=== PATIENT | female | born 1990 | race African-American/Black ===

== ENCOUNTER 2016-09-04 14:26 | Inpatient (IN) | payer MEDICAID ==
[~2016-09-04] VITALS: Ht 157.5 cm; Wt 54.4 kg
[~2016-09-04 14:26] MED LIST: IBUPROFEN600 MG ORAL; IBUPROFEN600 MG PO; KEFLEX500 MG ORAL; NKM; NORCO 5-325 TA1 EACH ORAL; PROMETHAZINE-C118 M1 ORAL; PROMETHAZINE-D118 ML ORAL; VICODIN 5-3001 EACH ORAL; VICODIN 5-5001 EACH PO
[2016-09-04] MEDS ORDERED: Metoclopramide 10mg/2ml Inj IVP ONE (15:00)
--- NOTE | 2016-09-04 15:56 | Emergency Room Report ---
History of Present Illness General Chief Complaint: Nausea, Vomiting, and Diarrhea Source: Patient, Medical Record Present Illness HPI 25 YO F presents with generalized abd pain, multiple episodes of bilious vomiting and diarrhea since "eating friend's mother's tacos" last night. Denies fever/chills, urinary complaints, flank pain. Previous abd/pelvic surgery was . No other sick contacts. Allergies: Coded Allergies: No Known Allergies (Unverified , 08/08/12) Patient History Past Medical History: none Past Surgical History: Pertinent Family History: none Social History: Denies: alcohol use, drug use, smoking Last Menstrual Period: 08/04/2016 Now: No : 4 Para: 2 Immunizations: UTD Reviewed Nursing Documentation: PMH: Agreed, PSxH: Agreed Review of Systems All Other Systems: negative except mentioned in HPI Physical Exam Vital Signs Date Time Temp Pulse Resp B/P Pulse Ox O2 Delivery O2 Flow Rate FiO2 09/04/16 14:32 97.9 74 16 160/96 100 Room Air Sp02 EP Interpretation: reviewed, normal General Appearance: normal inspection, well appearing, no apparent distress, alert, mild distress, other - intermittent vomiting Head: normocephalic, atraumatic Eyes: bilateral eye EOMI, bilateral eye PERRL ENT: normal ENT inspection, hearing grossly normal, normal voice Neck: normal inspection, full range of motion, supple, no bony tend Respiratory: normal inspection, lungs clear, normal breath sounds, no respiratory distress, no retraction, no wheezing Cardiovascular #1: regular rate, rhythm, no edema Gastrointestinal: normal inspection, normal bowel sounds, non tender, soft, no guarding, no hernia Genitourinary: no CVA tenderness Musculoskeletal: normal inspection, back normal, normal range of motion, Avelino' s Sign negative Neurologic: normal inspection, alert, oriented x3, responsive, mover helper III-XII nml as tested, motor strength/tone normal, speech normal Psychiatric: normal inspection, judgement/insight normal, mood/affect normal Skin: normal inspection, normal color, no rash Medical Decision Making Diagnostic Impression: Primary Impression: Nausea, vomiting, and diarrhea Additional Impressions: Leukocytosis Qualified Codes: D72.829 - Elevated white blood cell count, unspecified Abdominal pain in female JOLIE (acute kidney injury) Dehydration Marijuana use, continuous ER Course 25 YO F with multiple episodes of n.v.d. Afebrile. VS notable for hypertension likely d/t vomiting. Abd sono in 2014 shows cholelithiasis. PLAN Labs, IVF hydration, anti emetic, CTAP to r/o jamie given history of gall stones , appy, colitis Reevaluation Time: 19:14 Last Vital Signs Date Time Temp Pulse Resp B/P Pulse Ox O2 Delivery O2 Flow Rate FiO2 09/04/16 14:32 97.9 74 16 160/96 100 Room Air Status: improved Reevaluation Impression Labs: Leuks 24K. Not . No UTI. Mild JOLIE. No significant metabolic abnormality CTAP: ?intusseception but no assoc SBO. No visualization of appx but no inflammation seen in area. No obvious acute jamie. Dr Vega from [facility] consulted, saw patient bedside. Empiric IV Abx Zosyn given Patient stopped vomiting only after IV ativan was given when IV zofran and Reglan were ineffective. Abd ultrasound to evaluate for acute jamie was also negative. No mass in adnexa was seen Per tech, what was seen on 2014 sono and thought to be a gallstone was more likely tip of duodenum or gas from duodenum, unlikely a gall stone. Endorsed to Dr Jimenez at 716pm Sono tech requesting AM pelvic sono to allow for proper prep, full bladder; I communicated this to Dr Jimenez. Utox positive for MJ use At this time, 8pm, possible diagnoses include cyclic vomiting from marijuana abuse, although leuks are very high. Unlikely jamie or appy. Empiric IV Abx were given along with anti emetic, IVF hydration for JOLIE. Disposition: ADMITTED INPATIENT Condition: Critical Referrals: АЛЕКСАНДР TEE,REFERRING (PCP) RONAK DYSON M.D. Sep 04, 2016 15:56
[2016-09-04 15:58] LABS: ALANINE AMINOTRANSFERASE 25 U/L (3-33); ALBUMIN/GLOBULIN RATIO 1.5 (1.0-2.7); ASPARTATE AMINO TRANSFERASE 22 U/L (5-40); CALCIUM 9.9 mg/dL (8.6-10.2); CARBON DIOXIDE 24 mEQ/L (20-30); CHLORIDE 98 mEQ/L (98-107); GLOMERULAR FILTRATION RATE > 60 mL/min (>60); HEMOLYSIS 9; LIPASE 24 U/L (< 60); POTASSIUM 3.8 mEQ/L (3.4-4.9); SODIUM 139 mEQ/L (135-145)
[2016-09-04 16:51] LABS: APPEARANCE,URINE CLEAR; KETONES,URINE 3+ (NEGATIVE); LEUKOCYTE ESTERASE ,URINE 2+ (NEGATIVE); NITRITE,URINE NEGATIVE (NEGATIVE); PH,URINE 7 (4.5-8.0); PROTEIN,URINE 2+ (NEGATIVE); UROBILINOGEN,URINE NORMAL MG/DL (0.0-1.0)
[2016-09-04 17:00] LABS: BACTERIA,URINE MODERATE /HPF; SQUAMOUS EPITHELIAL CELL,UR FEW /LPF (NONE/OCC)
[2016-09-04] MEDS ORDERED: LORazepam Inj 2mg/ml 1ml IV ONE (17:30)
[2016-09-04] MEDS ORDERED: Famotidine 20 MG/ 2ML VIAL IVP ONE (17:45)
[2016-09-04 17:50] LABS: MEAN CORPUSCULAR HEMOGLOBIN 31.9 PG (27.0-31.0); MEAN CORPUSCULAR VOLUME 97 FL (80-99); MEAN PLATELET VOLUME 8.5 FL (6.5-10.1); PLATELET COUNT 217 K/UL (150-450); RED BLOOD COUNT 4.92 M/UL (4.20-5.40); RED CELL DISTRIBUTION WIDTH 12.3 % (11.6-14.8)
[2016-09-04] MEDS ORDERED: Piperacillin/Tazobactam 3.375 GM in NS 110 ML IVPB ONE (18:00)
[2016-09-04] MEDS ORDERED: NS 110 ML ONE (18:02)
[2016-09-04] MEDS ORDERED: Zosyn 3.375gm inj ONE (18:02)
[2016-09-04 18:24] LABS: BAND NEUTROPHILS % (MANUAL) 2 % (0-8); LYMPHOCYTES % (MANUAL) 6 % (20-45); NEUTROPHILS % (MANUAL) 89 % (45-75); TOTAL CELLS COUNTED 100
[2016-09-04 18:25] LABS: PLATELET MORPHOLOGY NORMAL
[2016-09-04 18:26] VITALS: BP 119/85
[2016-09-04 18:26] LABS: BASOPHILS % (MANUAL) 0 % (0-2); EOSINOPHILS % (MANUAL) 0 % (0-3); PLATELET ESTIMATE ADEQUATE
[2016-09-04 18:41] LABS: INR 1.2 (0.9-1.1)
[2016-09-04 20:21] VITALS: BP 113/57
--- NOTE | 2016-09-04 20:47 | General Progress Note ---
Progress Note Progress Note pt seen in ED and at US for abd pain. Full notes to follow. CT did not show signs of acute appendicitis. prelimianary report of extra hand did not see gallstones (preivious US last year repported to show them. Labs Test 09/04/16 15:29 09/04/16 16:43 09/04/16 17:35 09/04/16 18:15 Sodium Level 139 mEQ/L (135-145) Potassium Level 3.8 mEQ/L (3.4-4.9) Chloride Level 98 mEQ/L (98-107) Carbon Dioxide Level 24 mEQ/L (20-30) Blood Urea Nitrogen 10 mg/dL (7-23) Creatinine 1.0 mg/dL (0.5-0.9) Estimat Glomerular Filtration Rate > 60 mL/min (>60) Glucose Level 115 mg/dL (74-106) Calcium Level 9.9 mg/dL (8.6-10.2) Total Bilirubin 0.5 mg/dL (0.0-1.2) Aspartate Amino Transf (AST/SGOT) 22 U/L (5-40) Alanine Aminotransferase (ALT/SGPT) 25 U/L (3-33) Alkaline Phosphatase 69 U/L (35-104) Total Protein 8.0 g/dL (6.6-8.7) Albumin 4.8 g/dL (3.5-5.2) Globulin 3.2 g/dL Albumin/Globulin Ratio 1.5 (1.0-2.7) Lipase 24 U/L (< 60) Urine Color Yellow Urine Appearance Clear Urine pH 7 (4.5-8.0) Urine Specific Carlton 1.005 (1.005-1.035) Urine Protein 2+ (NEGATIVE) Urine Glucose (UA) Negative (NEGATIVE) Urine Ketones 3+ (NEGATIVE) Urine Occult Blood 2+ (NEGATIVE) Urine Nitrite Negative (NEGATIVE) Urine Bilirubin Negative (NEGATIVE) Urine Urobilinogen Normal MG/DL (0.0-1.0) Urine Leukocyte Esterase 2+ (NEGATIVE) Urine RBC 5-10 /HPF (0 - 2) Urine WBC 2-4 /HPF (0 - 2) Urine Squamous Epithelial Cells Few /LPF (NONE/OCC) Urine Bacteria Moderate /HPF (NONE) Urine HCG, Qualitative Negative Urine Opiates Screen Negative (NEGATIVE) Urine Barbiturates Screen Negative (NEGATIVE) Phencyclidine (PCP) Screen Negative (NEGATIVE) Urine Amphetamines Screen Negative (NEGATIVE) Urine Benzodiazepines Screen Negative (NEGATIVE) Urine Cocaine Screen Negative (NEGATIVE) Urine Marijuana (THC) Screen Positive (NEGATIVE) White Blood Count 24.0 K/UL (4.8-10.8) Red Blood Count 4.92 M/UL (4.20-5.40) Hemoglobin 15.7 G/DL (12.0-16.0) Hematocrit 47.5 % (37.0-47.0) Mean Corpuscular Volume 97 FL (80-99) Mean Corpuscular Hemoglobin 31.9 PG (27.0-31.0) Mean Corpuscular Hemoglobin Concent 33.0 G/DL (32.0-36.0) Red Cell Distribution Width 12.3 % (11.6-14.8) Platelet Count 217 K/UL (150-450) Mean Platelet Volume 8.5 FL (6.5-10.1) Neutrophils (%) (Auto) % (45.0-75.0) Lymphocytes (%) (Auto) % (20.0-45.0) Monocytes (%) (Auto) % (1.0-10.0) Eosinophils (%) (Auto) % (0.0-3.0) Basophils (%) (Auto) % (0.0-2.0) Differential Total Cells Counted 100 Neutrophils % (Manual) 89 % (45-75) Lymphocytes % (Manual) 6 % (20-45) Monocytes % (Manual) 3 % (1-10) Eosinophils % (Manual) 0 % (0-3) Basophils % (Manual) 0 % (0-2) Band Neutrophils 2 % (0-8) Platelet Estimate Adequate Platelet Morphology Normal Red Blood Cell Morphology Normal Prothrombin Time 12.0 SEC (9.30-11.50) Prothromb Time International Ratio 1.2 (0.9-1.1) Activated Partial Thromboplast Time 25 SEC (23-33) plan admit iv antibiotics serial labs and exams willreview imaging with radiologist in [place] Sep 04, 2016 20:47
[2016-09-04 21:53] VITALS: BP 122/72
[2016-09-04] MEDS ORDERED: Morphine Sulfate 2mg/ml Inj IVP PRN (22:45)
[2016-09-04] MEDS ORDERED: Acetaminophen 650 MG SUPP RECTAL PRN ×2 (22:45)
[2016-09-04] MEDS ORDERED: Morphine Sulfate 4mg/ml Inj IVP ONE (23:00)
[2016-09-04 23:30] VITALS: BP 125/78
[2016-09-05] VITALS (10 sets, daily range): BP systolic 95–128; BP diastolic 46–99
[2016-09-05] MEDS ORDERED: cefOXitin 1gm Inj ONE ×3 (00:22→11:25)
[2016-09-05] MEDS: cefOXitin Sod 1 GM in D5W 55 ML IVPB SCH ×4 (00:26→18:02)
[2016-09-05] MEDS: LORazepam Inj 2mg/ml 1ml IV SCH ×3 (01:45→09:00)
[2016-09-05] MEDS: D5 1/2NS w/KCl 20mEq 1,000 ML IV SCH ×5 (02:47→16:06)
[2016-09-05 08:26] LABS: BASOPHILS % (AUTO) 0.8 % (0.0-2.0); EOSINOPHILS % (AUTO) 0.7 % (0.0-3.0); LYMPHOCYTES % (AUTO) 15.4 % (20.0-45.0); MEAN CORPUSCULAR HEMOGLOBIN 31.5 PG (27.0-31.0); MEAN CORPUSCULAR VOLUME 96 FL (80-99); MEAN PLATELET VOLUME 9.7 FL (6.5-10.1); MONOCYTES % (AUTO) 6.1 % (1.0-10.0); NEUTROPHILS % (AUTO) 76.9 % (45.0-75.0); PLATELET COUNT 219 K/UL (150-450); RED BLOOD COUNT 4.63 M/UL (4.20-5.40); RED CELL DISTRIBUTION WIDTH 12.2 % (11.6-14.8); WHITE BLOOD COUNT 14.2 K/UL (4.8-10.8)
--- NOTE | 2016-09-05 08:32 | Diagnostic Imaging Report ---
Indications: Abdominal pain, nausea and vomiting, diarrhea for one day Technique: Continuous helical CT imaging of the abdomen and pelvis was performed with automatic exposure control following administration of nonionic IV contrast only, on a Siemens sensation [address] scanner. Axial, coronal, sagittal images were reconstructed at 5 mm slice thickness. No oral contrast was administered per requesting physician's order, despite no contraindications listed in either submitted clinical data or tech note.. CTDI volume(s): 15 mGy Total DLP: 77 mGy-cm Findings: Comparison: None Lack of oral contrast limits evaluation of gastrointestinal tract, nondilated throughout. 3 body fat decreases inherent soft tissue contrast, further limiting evaluation. Nondilated small bowel loop in the left upper quadrant demonstrates a target-like appearance. Several adjacent ovoid 2 elongated fluid filled structures occupy the left axilla region, up to 2 cm diameter. Questionable visualization of appendix without obvious acute abnormalities.. No obvious adjacent stranding, extraluminal gas or fluid collections identified. Intrauterine device within central portion of uterus. Liver, gallbladder, pancreas, spleen, adrenal glands, kidneys, unopacified ureters and mildly distended urinary bladder, right adnexal region, vascular structures, retroperitoneum, mesentery, remainder visualized abdominopelvic anatomy unremarkable. Lung bases and adjacent pleural surfaces clear. No focal skeletal abnormalities are identified. IMPRESSION: No evidence of acute abdominopelvic disease, with limitation as described. Subtle but potentially significant abnormalities the gastrointestinal tract may be missed. Repeat CT scan with full oral and IV contrast preparation recommended for more complete evaluation, as clinically indicated Apparent target-like appearance of small bowel in left upper quadrant. Intussusception not excludable, though no evidence of associated obstruction. See above recommendation. Fluid-filled structures in left adnexal region--small bowel versus ovarian cyst versus hydrosalpinx. See above recommendation; ultrasound correlation also suggested. IUD Written preliminary report placed in PACS 09/04/16 at 1854
--- NOTE | 2016-09-05 08:51 | Diagnostic Imaging Report ---
Indications: Abdominal pain Technique: Transabdominal real-time grayscale and duplex Doppler imaging of the upper abdomen and retroperitoneum was performed. Findings: Comparison: CT abdomen pelvis earlier today; abdominal ultrasound 06/24/2014. Liver normal size and surface contour, parenchymal echogenicity. No focal lesions. Gallbladder unremarkable. No intraluminal stones or sludge. No mural thickening or adjacent fluid collections. Sonographic Flores sign negative.. Bile ducts normal caliber. Common bile duct 2 mm. Pancreas portions unremarkable. Spleen unremarkable. Right kidney unremarkable. Left kidney unremarkable. Abdominal aorta, intrahepatic portion of inferior vena cava patent, normal caliber. Duplex Doppler imaging demonstrates antegrade flow in splenic, portal, hepatic veins. No ascites. IMPRESSION: Negative abdominal ultrasound. Review of previous ultrasound reveals that the findings thought to represent gallstones more likely represent gas-filled loops of bowel adjacent to and indenting the gallbladder.
[2016-09-05 08:52] LABS: ALANINE AMINOTRANSFERASE 17 U/L (3-33); ALBUMIN/GLOBULIN RATIO 1.4 (1.0-2.7); AMYLASE 86 U/L (10-110); ANION GAP 13 (5-15); ASPARTATE AMINO TRANSFERASE 18 U/L (5-40); CALCIUM 8.7 mg/dL (8.6-10.2); CARBON DIOXIDE 23 mEQ/L (20-30); CHLORIDE 102 mEQ/L (98-107); CREATININE 0.9 mg/dL (0.5-0.9); GLOMERULAR FILTRATION RATE > 60 mL/min (>60); HEMOLYSIS 8; LIPASE 20 U/L (< 60); POTASSIUM 3.6 mEQ/L (3.4-4.9); SODIUM 138 mEQ/L (135-145); TOTAL PROTEIN 6.4 g/dL (6.6-8.7)
[2016-09-05] MEDS ORDERED: Pantoprazole Inj IV SCH (09:00)
[2016-09-05] MEDS ORDERED: Heparin 5000 units/ml inj SUBQ SCH (09:00)
[2016-09-05] MEDS ORDERED: Heparin 5000 units/ml inj ONE (09:12)
[2016-09-05] MEDS ORDERED: Pantoprazole Inj ONE (09:13)
[2016-09-05 09:46] LABS: ERYTHROCYTE SEDIMENTATION RATE 5 MM/HR (0-20)
--- NOTE | 2016-09-05 11:58 | General Progress Note ---
Progress Note Progress Note Surgery Note: patient seen and examined this morning. awaiting for bed on the coates so still in the ED. States that she feels a bit better today. pain still present but mildly improved. pain described as sharp right mid quadrant / flank pain without radiation. can identify pain with palpation. currently no nausea or emesis. states she is hungry. +flatus. Afebrile, VSS, exam with Right sided abdominal tenderness Leukocytosis improved this morning CT scan reviewed and no acute surgical findings Abdominal ultrasound reviewed and not significant pathology identified A/P: 25 F right sided abdominal pain. Had pelvic and transvaginal ultrasound this morning. awaiting results appendix and gallbladder seem benign and unlikely the source at this time does not seem to have signs of symptoms of sbo potentially PET FOOD DEBONER in nature Currently no surgical intervention necessary from general surgery standpoint will await results of tests and follow along with you. Estuardo Rollins MD Sep 05, 2016 11:58
--- NOTE | 2016-09-05 21:07 | History and Physical Report ---
DATE OF ADMISSION: 09/04/2016 CHIEF COMPLAINT AND REASON FOR HOSPITALIZATION: The patient admitted with uncontrolled nausea, vomiting, diarrhea. HISTORY OF PRESENT ILLNESS: The patient unable to hold down any foods or liquids with nausea, vomiting, and diarrhea for about 24 hours. She attributes this possibly to some food she ate at a fast food restaurant but about another friend of her only took two bites and did not suffer the same symptoms. The patient was seen in the emergency room because of the leukocytosis. She had CT of the abdomen which showed questionable area of abnormality in the adnexa. Pelvic ultrasound was recommended and results are pending. There was a fluid-filled structure in the left adnexal region small bowel versus ovarian cyst versus hydrosalpinx however she is complaining of pain towards the right lower quadrant. The patient has an IUD. MEDICATIONS: Prior to admission medications include Keflex, promethazine with codeine, [place], Vicodin, Motrin. PAST SURGICAL HISTORY: section once. She has also had several drainages of Bartholin's cyst. ALLERGIES: None known. HABITS: She smokes cigarettes and marijuana, intermittently she has tried cocaine. FAMILY HISTORY: Positive in the members for diabetes. REVIEW OF SYSTEMS: Heent: Vision and hearing is good except she had blurry vision when she was sick with nausea and vomiting last night. Pulmonary: No asthma, TB, or chronic cough. She has had a mild cough recently. Gastrointestinal: See history of present illness. She has had some stool with rectal bleed which she may attribute to hemorrhoids at this time with her diarrhea. Cardiac: No angina, [place], or palpitations. Genitourinary: No dysuria or hematuria. She has one child, one section. She did have pelvic inflammatory disease likely gonorrhea as a teenager. She has an intrauterine device. Musculoskeletal: No history of chronic joint pain. PHYSICAL EXAMINATION: GENERAL: The patient is alert lady, in no acute distress. VITAL SIGNS: Temperature 99, pulse 78, respirations 20, and blood pressure 114/99, pulse oximetry 99%. HEENT: Sclerae are nonicteric. Ocular motions intact in all directions. Oral mucosa is moist. NECK: No adenopathy or thyroid enlargement. LUNGS: Clear. HEART: Regular rhythm. No murmur. ABDOMEN: Soft. Liver and spleen not palpable. There is minimal discomfort in the right lower quadrant but no focal tenderness. No rebound. EXTREMITIES: No edema cyanosis or clubbing. NEUROLOGIC: She is alert and oriented. Cranial nerves are intact. LABORATORY AND DIAGNOSTIC DATA: Pertinent labs, urinalysis shows 2+ protein, 3+ ketones, 2+ occult blood, 5 to 10 red cells, 2 to 4 white cells per high-power field. White count 53151 repeat 14.2. Chemistries normal. IMPRESSION: Nausea, vomiting, diarrhea, abdominal pain this could be a viral syndrome possibly food poisoning, possible pelvic inflammatory disease, possible other etiology to be determined such as tubo-ovarian abscess, ovarian cyst. PLAN: The patient has been placed on empiric antibiotics for gastroenteritis and possible pelvic inflammatory disease. Pelvic ultrasound will be checked. She has been started on clear liquids and intravenous hydration. We will advance diet as tolerated. We will await for further lab data and adjust treatment as needed. Jeremy Jimenez M.D. DR: Priscilla JOB#: [id number] CC:
[2016-09-06] MEDS ORDERED: MACROBID100 MG ORAL (00:07)
[2016-09-06] MEDS ORDERED: ZOFRAN4 MG ORAL (00:07)
--- NOTE | 2016-09-06 15:58 | Diagnostic Imaging Report ---
Indications: Pelvic pain, bowel versus ovarian cyst versus hydrosalpinx and left adnexal region on CT scan requiring further evaluation, LMP 08/07/16 Technique: Transabdominal and transvaginal real-time grayscale and duplex Doppler imaging of the pelvis was performed. Findings: Comparison: CT abdomen pelvis 09/04/16; pelvic ultrasound 06/08/14 Uterus measures 7.8 x 5.4 x 3.7cm. It demonstrates normal contour and myometrial echotexture without focal abnormality. The endometrial complex measures one mm in diameter. It contains a linear echogenic shadowing structure but is otherwise unremarkable in appearance.. Cervix unremarkable. Minimal free fluid is present in the cul-de-sac. Right ovary measures 2.3 x 2.8 x 1.3 cm. It contains multiple small peripheral follicles.. Duplex Doppler imaging demonstrates normal blood flow. No extra-ovarian abnormality is seen. Left ovary measures 3 x 3.5 x 1.6 cm. It contains multiple small peripheral follicles.. Duplex Doppler imaging demonstrates normal blood flow. Multiple adjacent gas- and fluid-filled bowel loops.. IMPRESSION: No evidence of left adnexal ovarian or tubal pathology. CT findings correspond to small bowel loops seen in this region currently. Minimal pelvic free fluid, nonspecific, may be physiologic IUD in uterine endometrial canal
--- NOTE | 2016-09-07 05:07 | Discharge Summary ---
DATE OF ADMISSION: 09/04/2016 DATE OF DISCHARGE: 09/05/2016 PERTINENT HISTORY: The patient presents with nausea, vomiting, and abdominal pain. No fever or chills. She also had leukocytosis. PERTINENT PHYSICAL FINDINGS: LUNGS: Clear. HEART: Regular rhythm. ABDOMEN: Soft. I found no definite focal tenderness. COURSE IN THE HOSPITAL: The patient had imaging including CT scan of abdomen and pelvis and ultrasound, and no definite abnormality was found. She was placed on empiric antibiotics for possible PID or intraabdominal infection. There is no evidence of a urinary infection. The patient's nausea and vomiting abated and she left the hospital against medical advice. FINAL DIAGNOSES: 1. Nausea and vomiting. 2. Diarrhea. 3. Possible . 4. Possible pelvic inflammatory disease. DISCHARGE DISPOSITION: The patient left AMA before all studies were completed. Jeremy Jimenez M.D. DR: ALIX JOB#: [id number] CC:
== END 2016-09-05 20:15 | disposition left against medical advice (07) | DRG 531 ==
LOC: EMR 15:03 → 3E 18:44 → EDBEDREQ 20:04 → 3E 09-05 15:41
DX: N73.9 Female pelvic inflammatory disease, unspecified (principal); F17.210 Nicotine dependence, cigarettes, uncomplicated; F12.90 Cannabis use, unspecified, uncomplicated; R19.7 Diarrhea, unspecified
CPT/HCPCS: 36415; 74177; 76700; 76830; 76856; 80053; 80300; 81003; 81025; 82150; 83690; 84443; 84703; 85007; 85025; 85610; 85651; 85730; 86592; 86703; 86803; 86850; 86900; 86901; 87040; 87081; 87086; 87340; J2405; J2765

== ENCOUNTER 2016-09-05 21:26 | Emergency (ER) | payer MEDICAID ==
[~2016-09-05] VITALS: Ht 157.5 cm; Wt 54.4 kg
--- NOTE | 2016-09-05 22:26 | Emergency Room Report ---
History of Present Illness General Chief Complaint: Abdominal Pain Source: Patient, Medical Record Present Illness HPI This is a 25-year-old female with no significant medical history except for several admission for vomiting and abdominal pain. She was admitted here yesterday for abdominal pain and vomiting. She had a psychosis. She left AMA because she said she has to change her alarm. She came back here for the same. Said she felt better. No vomiting. She's been eating soup. She had a normal meal prior to discharge. Said she still has nausea. No diarrhea. Cramping pain. Was limited to [facility] for the same 2 weeks ago. Allergies: Coded Allergies: No Known Allergies (Unverified , 08/08/12) Patient History Past Medical History: see triage record, old chart reviewed Past Surgical History: other Pertinent Family History: none Social History: Reports: drug use - MJ Last Menstrual Period: 08/04/2016 Now: No : 4 Para: 2 Immunizations: other Reviewed Nursing Documentation: PMH: Agreed, PSxH: Agreed Nursing Documentation-PMH Hx Cardiac Problems: No Hx Asthma: Yes Hx Cancer: No Hx Neurological Problems: No Review of Systems Eye: Denies: blurred vision, eye pain ENT: Denies: ear pain, nose congestion, throat swelling Respiratory: Denies: cough, shortness of breath Cardiovascular: Denies: chest pain, palpitations Gastrointestinal: Reports: abdominal pain, nausea, Denies: diarrhea, vomiting Musculoskeletal: Denies: back pain, joint pain Skin: Denies: rash Neurological: Denies: headache, numbness Endocrine: Denies: increased thirst, increased urine Hematologic/Lymphatic: Denies: easy bruising All Other Systems: negative except mentioned in HPI Physical Exam Vital Signs Date Time Temp Pulse Resp B/P Pulse Ox O2 Delivery O2 Flow Rate FiO2 09/05/16 22:02 98.4 86 16 107/72 100 Room Air vitals normal Sp02 EP Interpretation: reviewed, normal General Appearance: well appearing, no apparent distress, alert Head: normocephalic, atraumatic Eyes: bilateral eye EOMI, bilateral eye PERRL ENT: hearing grossly normal, normal pharynx Neck: full range of motion, supple, no meningismus Respiratory: chest non-tender, lungs clear, normal breath sounds Cardiovascular #1: regular rate, rhythm, no murmur Gastrointestinal: normal bowel sounds, non tender, no mass, no organomegaly, no bruit, non-distended Musculoskeletal: back normal, gait/station normal, normal range of motion Psychiatric: mood/affect normal Skin: warm/dry Medical Decision Making Diagnostic Impression: Primary Impression: Abdominal pain Qualified Codes: R10.84 - Generalized abdominal pain Additional Impressions: Vomiting and diarrhea UTI (urinary tract infection) Qualified Codes: N30.00 - Acute cystitis without hematuria ER Course She present with abdominal pain with vomiting and diarrhea. Symptoms improved. White count is now normal. I see no criteria for initially now. She has not vomited here. She tolerated by mouth. We'll discharge home. Lab Results Impression labs unremarkable Last Vital Signs Date Time Temp Pulse Resp B/P Pulse Ox O2 Delivery O2 Flow Rate FiO2 09/05/16 22:02 98.4 86 16 107/72 100 Room Air Status: improved Disposition: HOME, SELF-CARE Condition: Stable Scripts Ondansetron (Zofran) 4 Mg Tablet 4 MG ORAL Q6H Y for Nausea & Vomiting, #15 TAB 0 Refills Prov: KAREL SONG M.D. 09/06/16 Nitrofurantoin Monohyd/M-Cryst (Nitrofurantoin [place]-Mcr 100 mg) 100 Mg Capsule 100 MG ORAL Q12H, #14 CAP Prov: KAREL SONG M.D. 09/06/16 Patient Instructions: Abdominal Pain, Adult Additional Instructions: Followup with your DrMagdalena in 2 to 3 days. Return symptom worsen. KAREL SONG M.D. Sep 05, 2016 22:26
[2016-09-05 22:57] LABS: APPEARANCE,URINE CLEAR; KETONES,URINE NEGATIVE (NEGATIVE); LEUKOCYTE ESTERASE ,URINE 2+ (NEGATIVE); NITRITE,URINE NEGATIVE (NEGATIVE); PH,URINE 8 (4.5-8.0); PROTEIN,URINE NEGATIVE (NEGATIVE); UROBILINOGEN,URINE NORMAL MG/DL (0.0-1.0)
[2016-09-05 23:20] VITALS: BP 107/72
[2016-09-05 23:21] LABS: RBC,URINE 0-2 /HPF (0 - 2)
[2016-09-05 23:22] LABS: BACTERIA,URINE MANY /HPF; SQUAMOUS EPITHELIAL CELL,UR MODERATE /LPF (NONE/OCC)
[2016-09-05 23:44] LABS: BASOPHILS % (AUTO) 0.9 % (0.0-2.0); EOSINOPHILS % (AUTO) 0.8 % (0.0-3.0); LYMPHOCYTES % (AUTO) 24.8 % (20.0-45.0); MEAN CORPUSCULAR HEMOGLOBIN 31.7 PG (27.0-31.0); MEAN CORPUSCULAR HGB CONC 32.7 G/DL (32.0-36.0); MEAN CORPUSCULAR VOLUME 97 FL (80-99); MEAN PLATELET VOLUME 8.5 FL (6.5-10.1); MONOCYTES % (AUTO) 5.3 % (1.0-10.0); NEUTROPHILS % (AUTO) 68.3 % (45.0-75.0); PLATELET COUNT 214 K/UL (150-450); RED BLOOD COUNT 4.97 M/UL (4.20-5.40); RED CELL DISTRIBUTION WIDTH 12.6 % (11.6-14.8); WHITE BLOOD COUNT 11.8 K/UL (4.8-10.8)
[2016-09-06 00:05] LABS: ANION GAP 16 (5-15); CALCIUM 9.3 mg/dL (8.6-10.2); CARBON DIOXIDE 22 mEQ/L (20-30); CHLORIDE 102 mEQ/L (98-107); CREATININE 0.9 mg/dL (0.5-0.9); GLOMERULAR FILTRATION RATE > 60 mL/min (>60); HEMOLYSIS 24; POTASSIUM 3.8 mEQ/L (3.4-4.9); SODIUM 140 mEQ/L (135-145)
[2016-09-06] MEDS ORDERED: MACROBID100 MG ORAL (00:07)
[2016-09-06] MEDS ORDERED: ZOFRAN4 MG ORAL (00:07)
[2016-09-06 00:20] VITALS: BP 109/75
[2016-09-06 00:31] VITALS: BP 109/75
== END 2016-09-06 00:35 | disposition home or self-care (01) ==
LOC: EMR 22:30
DX: N30.00 Acute cystitis without hematuria (principal); R11.10 Vomiting, unspecified; R19.7 Diarrhea, unspecified; J45.909 Unspecified asthma, uncomplicated; F12.10 Cannabis abuse, uncomplicated
CPT/HCPCS: 36415; 80048; 80300; 81003; 85025; 87086; 96374; 96375; 99284; J2405

== ENCOUNTER 2018-04-30 14:31 | Emergency (ER) | payer SELFPAY ==
[~2018-04-30] VITALS: Ht 157.5 cm; Wt 71.7 kg
[~2018-04-30 14:31] MED LIST changes: +MACROBID100 MG ORAL; +ZOFRAN4 MG ORAL
[2018-04-30] MEDS ORDERED: NKM (14:43)
[2018-04-30 14:47] VITALS: BP 120/81
--- NOTE | 2018-04-30 15:04 | Emergency Room Report ---
History of Present Illness General Chief Complaint: Nausea Source: Patient Present Illness HPI 27-year-old female patient presents ER complaining of vomiting and diarrhea 1 day. Reports watery diarrhea. denies hematemesis. Reports symptoms began yesterday after eating shrimp enchiladas. Reports someone else ate the same food, denies contact similar symptoms. denies travel outside the [place]. Reports suprapubic and pelvic discomfort during this time. denies dysuria, hematuria, vaginal discharge. reports history of gallstones, has not been seen followed up by primary care provider. Denies problems with gallstones since diagnosis 3 years ago during . Denies fever, chest pain, shortness of breath. states that she has not been able to tolerate any food or fluids since symptoms began, last vomited an hour ago. Reports took Tylenol earlier today to help with pain symptoms but states that she threw up afterwards. states she was drinking alcohol last night. Reports LMP a few days ago, normal. Allergies: Coded Allergies: No Known Allergies (Unverified , 08/08/12) Patient History Past Medical History: see triage record Last Menstrual Period: 04/27/18 Now: No Reviewed Nursing Documentation: PMH: Agreed; PSxH: Agreed Nursing Documentation-PMH Past Medical History: No History, Except For Hx Cardiac Problems: No Hx Asthma: Yes Hx Cancer: No Hx Neurological Problems: No Review of Systems All Other Systems: negative except mentioned in HPI Physical Exam Vital Signs Date Time Temp Pulse Resp B/P (MAP) Pulse Ox O2 Delivery O2 Flow Rate FiO2 04/30/18 14:37 98.2 56 18 120/81 98 Room Air 98.2 Sp02 EP Interpretation: reviewed, normal General Appearance: well appearing, no apparent distress, alert, GCS 15, non- toxic Head: normocephalic, atraumatic, other - no jaw swelling, no jaw clicking Eyes: bilateral eye normal inspection, bilateral eye PERRL ENT: hearing grossly normal, normal pharynx, no angioedema, normal voice, uvula midline, moist mucus membranes Neck: full range of motion, no bony tend Respiratory: lungs clear, normal breath sounds, no rhonchi, no respiratory distress, no accessory muscle use, no wheezing, speaking full sentences Cardiovascular #1: regular rate, rhythm, no edema Gastrointestinal: non tender, soft, no mass, non-distended, no guarding, no rebound, other - negative Flores sign, negative Rovsing, negative obturator Genitourinary: no CVA tenderness Musculoskeletal: back normal, digits/nails normal, gait/station normal, normal range of motion, non-tender Neurologic: alert, oriented x3, responsive, air defense control officer III-XII nml as tested, motor strength/tone normal, SLR negative, sensory intact, cerebellar normal, normal gait, speech normal Skin: no rash Medical Decision Making PA Attestation Dr. Arreola is my supervising Physician whom patient management has been discussed with. Diagnostic Impression: Primary Impression: Vomiting and diarrhea Additional Impression: Lung nodule ER Course Pt. presents to the ED c/o vomiting and diarrhea. Ddx considered but are not limited to viral syndrome, gastritis, enteritis, food poisoning, GERD, reflux, UTI, cholecystitis. Vital signs: are WNL, pt. is afebrile at discharge. ordered UA, urine , and Zofran. ED COURSE: Physical exam benign, no abdominal TTP, negative Flores sign, negative Rovsing, negative obturator, low suspicion for appendicitis or cholecystitis, does not require labs or imaging at this time. No fever, no blood in stool, no recent travel or hospitalizations, does not require abx treatment at this time. No signs of dehydration, moist mucus membranes, cap refill <2seconds, normal skin turgor. Patient tolerated PO fluids in the ER without vomiting. UA shows no nitrites, few white blood cells, low suspicion for UTI. 5-10 rbc' s noted on UA, consult with Dr. Arreola, will order CT abdomen pelvis to rule out kidney stones. bacteria noted on UA, negative nitrites, 2-4 WBCs dysuria, hematuria, low sufficient for UTI, does not require treatment with antibiotics at this time. urine negative Discuss results with patient. CT abdomen pelvis shows negative for acute disease, no kidney stones noted. Incidental finding of subpleural 3 mm nodule in the left lateral costophrenic sulcus. provided patient with copy of report. Instructed to follow-up with primary care provider to discuss further treatment and referral. Patient has a history of smoking cigarettes for the past 5 years, advised patient to stop smoking, advised patient on repeat CT of chest in 6 months per radiologist's recommendation. lungs clear to auscultation, no wheezes rhonchi or rales. Discuss results with the patient. Provided patient with copy of results. Instructed patient to followup with PCP and discuss results of report with patient, discuss need for further treatment and referral. Symptoms of vomiting and diarrhea likely related to probable food poisoning. Patient history consistent with likely food poisoning, will provide Zofran in the ER. . Patient instructed on BRAT diet. Patient instructed to remain hydrated, drink plenty of fluids. Patient questions asked and answered. Patient states understanding and agreement to treatment plan. ER precautions given, return to ER for new or worsening of symptoms. patient reports feeling better, okay for discharge to home. Nontoxic appearing , no acute distress, ambulating independently without difficulty. DISCHARGE: Rx provided for Tylenol for pain symptoms Rx provided for Zofran At this time pt. is stable for d/c to home. Patient is resting comfortably, laughing, in no acute distress, nontoxic appearing. Will provide printed patient care instructions, and any necessary prescriptions. Care plan and follow up instructions have been discussed with the patient prior to discharge. Patient instructed to followup with PCP in 3-5 days. Patient reports understanding and agreement to treatment plan. Patient questions asked and answered. ER precautions given; patient instructed to return to ER for new or worsening of symptoms including but not limited to fever, intractable vomiting, severe abdominal pain, blood in stool. - Please note that this Emergency Department Report was dictated using [employer] operator technology software, occasionally this can lead to erroneous entry secondary to interpretation by the dictation equipment. Labs Test 04/30/18 14:50 Urine Color Yellow Urine Appearance Clear Urine pH 9 (4.5-8.0) Urine Specific [place] 1.015 (1.005-1.035) Urine Protein 2+ (NEGATIVE) Urine Glucose (UA) Negative (NEGATIVE) Urine Ketones Negative (NEGATIVE) Urine Blood Negative (NEGATIVE) Urine Nitrite Negative (NEGATIVE) Urine Bilirubin Negative (NEGATIVE) Urine Urobilinogen Normal MG/DL (0.0-1.0) Urine Leukocyte Esterase 1+ (NEGATIVE) Urine RBC 5-10 /HPF (0 - 2) Urine WBC 2-4 /HPF (0 - 2) Urine Squamous Epithelial Cells Few /LPF (NONE/OCC) Urine Amorphous Sediment Few /LPF (NONE) Urine Bacteria Moderate /HPF (NONE) Urine HCG, Qualitative Negative (NEGATIVE) CT/MRI/US Diagnostic Results CT/MRI/US Diagnostic Results : Imaging Test Ordered: CT abdomen pelvis Impression Impression: Essentially unremarkable exam, no definite acute process. Note, however, that exam is significantly limited by lack of enteric and IV contrast 3 mm subpleural nodule in the left costophrenic sulcus. There is no significant smoking history or other risk factors for lung carcinoma, no further follow-up necessary. If there are significant risk factors, short interval follow-up CT scan in 6-12 months is recommended Intrauterine device incidentally noted in good position Last Vital Signs Date Time Temp Pulse Resp B/P (MAP) Pulse Ox O2 Delivery O2 Flow Rate FiO2 04/30/18 14:47 98.2 18 120/81 98 Room Air 98.2 04/30/18 14:37 56 Status: improved Disposition: HOME, SELF-CARE Condition: Stable Scripts Acetaminophen* (TYLENOL EXTRA STRENGTH*) 500 Mg Tablet 500 MG ORAL Q8H PRN for Prn Headache/Temp > 101, #30 TAB 0 Refills Prov: Esequiel Frederick 04/30/18 Ondansetron* (ZOFRAN*) 4 Mg Tablet 4 MG ORAL Q6H PRN for Nausea & Vomiting, #5 TAB Prov: Esequiel Frederick 04/30/18 Patient Instructions: Diarrhea, Adult, [id number], Food Poisoning, Easy-to- Read, Nausea and Vomiting, Adult, Pulmonary Nodule, [id number] Additional Instructions: Followup with primary care provider in 3 -5 days. discuss results of CT report. Discuss need for repeat CT in 6 months due to presence of nodule noted on CT report. Avoid spicy foods, avoid dairy foods. BRAT diet: bananas, rice, apple sauce, toast. Take medications as directed. Patient questions asked and answered. ER precautions given, patient instructed to return to ER immediately for any new or worsening of symptoms. Esequiel Frederick Apr 30, 2018 15:04
[2018-04-30 15:49] LABS: APPEARANCE,URINE CLEAR; BILIRUBIN, URINE NEGATIVE (NEGATIVE); GLUCOSE, URINE (UA) NEGATIVE (NEGATIVE); KETONES,URINE NEGATIVE (NEGATIVE); LEUKOCYTE ESTERASE ,URINE 1+ (NEGATIVE); NITRITE,URINE NEGATIVE (NEGATIVE); PH,URINE 9 (4.5-8.0); PROTEIN,URINE 2+ (NEGATIVE); UROBILINOGEN,URINE NORMAL MG/DL (0.0-1.0)
[2018-04-30 15:52] LABS: COLOR,URINE YELLOW
[2018-04-30] MEDS ORDERED: Norco 5mg/325mg tab ORAL ONE (16:30)
--- NOTE | 2018-04-30 17:11 | Diagnostic Imaging Report ---
Indication: Abdominal pain, vomiting, diarrhea Technique: Spiral acquisitions obtained through the abdomen and pelvis. No oral contrast utilized, per emergency room physician request No IV contrast utilized, per referring physician request.. Multiplanar reconstructions were generated. Total dose length product 570.82 mGycm. CTDIvol(s) 11.26 mGy. Dose reduction achieved using automated exposure control Comparison: None Findings: Lack of enteric contrast limits assessment of the GI tract. The appendix is normal. No evidence of diverticulosis or diverticulitis. Slightly prominent fluid-filled small bowel loops are seen in the upper abdomen, but no aissatou small bowel distention. No free or loculated intraperitoneal gas or fluid. Distal esophagus, stomach, duodenum are unremarkable. Lack of IV contrast limits assessment of the solid organs. The liver, gallbladder, bile ducts, pancreas, spleen, adrenals, kidneys are grossly unremarkable. No retroperitoneal or pelvic mass or adenopathy. Uterus contains an intrauterine device. Included lung bases demonstrate a subpleural 3 mm nodule in the left lateral costophrenic sulcus. The bones are unremarkable.. Impression: Essentially unremarkable exam, no definite acute process. Note, however, that exam is significantly limited by lack of enteric and IV contrast 3 mm subpleural nodule in the left costophrenic sulcus. There is no significant smoking history or other risk factors for lung carcinoma, no further follow-up necessary. If there are significant risk factors, short interval follow-up CT scan in 6-12 months is recommended Intrauterine device incidentally noted in good position The CT scanner at [facility] is accredited by the [employer] and the scans are performed using protocols designed to limit radiation exposure to as low as reasonably achievable to attain images of sufficient resolution adequate for diagnostic evaluation.
[2018-04-30] MEDS ORDERED: ZOFRAN4 M3 ORAL (17:14)
[2018-04-30] MEDS ORDERED: TYLENOL EXTRA500 MG ORAL (17:14)
[2018-04-30 17:38] VITALS: BP 115/72
== END 2018-04-30 17:38 | disposition home or self-care (01) ==
LOC: EMR 15:11
DX: R11.10 Vomiting, unspecified (principal); R19.7 Diarrhea, unspecified; R91.8 Other nonspecific abnormal finding of lung field; J45.909 Unspecified asthma, uncomplicated
CPT/HCPCS: 74176; 81003; 81025; 87086; 99283

== ENCOUNTER 2020-03-11 11:17 | Emergency (ER) | payer MEDICAID ==
[~2020-03-11] VITALS: Ht 157.5 cm; Wt 81.6 kg
[~2020-03-11 11:17] MED LIST changes: +TYLENOL EXTRA500 MG ORAL; +ZOFRAN4 M3 ORAL
[2020-03-11 11:40] VITALS: BP 102/70
--- NOTE | 2020-03-11 11:40 | NUR ---
ED Nurse Note: Pt walked into ED for abscess on chin for 2 days with pain and slight swelling. Abscess has mild serous drainage. Pt is alert and ox4, ambulatory. No COVID symptoms.
[2020-03-11] MEDS ORDERED: BACTRIM DS TAB1 EAC1 ORAL (11:46)
[2020-03-11] MEDS ORDERED: IBUPROFEN600 M1 ORAL (11:46)
[2020-03-11] MEDS ORDERED: CLEOCIN HCL300 MG PO (11:46)
[2020-03-11 11:53] VITALS: BP 102/70
--- NOTE | 2020-03-11 11:53 | NUR ---
ED Nurse Note: Pt cleared by ERMD for discharge. DC instructions/prescription was given and explained to pt and verbalized understanding of teachings. All medical deviecs such as ID band removed. Pt is AAO x4, ambulatory and left with all personal belongings.
--- NOTE | 2020-03-11 13:37 | Emergency Room Report ---
History of Present Illness General Chief Complaint: Skin Rash/Abscess Source: Patient Present Illness HPI Patient presents emergency department today complaining of swelling in the right chin area. She states that she felt that she had an abscess or pimple there and she squeezed it got worse and is now swollen. Is painful. She denies any fever nausea vomiting diarrhea chills. Symptoms noted to be moderate to severe. No other modifying factors. No other associated signs and symptoms. No other complaints were noted. Allergies: Coded Allergies: No Known Allergies (Unverified , 08/08/12) COVID-19 Screening Contact w/high risk pt: No Experienced COVID-19 symptoms?: No COVID-19 Testing performed GRAPHIC ART TECHNICIAN: No Patient History Past Medical History: none Past Surgical History: none Pertinent Family History: none Social History: Reports: smoking Last Menstrual Period: on period Reviewed Nursing Documentation: PMH: Agreed; PSxH: Agreed Nursing Documentation-PMH Past Medical History: No History, Except For Hx Cardiac Problems: No Hx Hypertension: No Hx Pacemaker: No Hx Asthma: No Hx COPD: No Hx Diabetes: No Hx Cancer: No Hx Gastrointestinal Problems: No Hx Dialysis: No History Of Psychiatric Problem: No Hx Neurological Problems: No Hx Cerebrovascular Accident: No Hx Seizures: No Review of Systems All Other Systems: negative except mentioned in HPI Physical Exam Vital Signs Date Time Temp Pulse Resp B/P (MAP) Pulse Ox O2 Delivery O2 Flow Rate FiO2 03/11/20 11:29 99.0 68 14 100/65 (77) 97 Room Air Sp02 EP Interpretation: reviewed, normal General Appearance: normal inspection, well appearing, no apparent distress, alert Head: atraumatic Eyes: bilateral eye normal inspection ENT: normal ENT inspection, hearing grossly normal, normal voice, other - Swelling right chin. No evidence of abscess. Consistent with cellulitis. Neck: normal inspection, full range of motion, supple, no bony tend Respiratory: normal inspection, lungs clear, normal breath sounds, no respiratory distress, no retraction, no wheezing Cardiovascular #1: regular rate, rhythm, no edema Gastrointestinal: normal inspection, normal bowel sounds, non tender, soft, no guarding, no hernia Genitourinary: no CVA tenderness Musculoskeletal: normal inspection, back normal, normal range of motion Neurologic: alert, responsive, speech normal, normal inspection Psychiatric: normal inspection, judgement/insight normal, mood/affect normal Skin: no rash Procedures Additional Procedure Procedure Narrative Needle aspiration: At patient's insistence and request needle aspiration was performed on patient' s right chin to rule out abscess. Area is prepped in sterile manner using 18- gauge needle I attempted to aspirate the right chin. However there was no evidence of any abscess. No evidence of pus discharge. The needle was withdrawn there was no complications associated with the procedure. Patient told procedure without difficulty. Medical Decision Making Diagnostic Impression: Primary Impression: Cellulitis ER Course Patient presents emergency department today complaining of swelling and tenderness in the right chin. Differential considerations include abscess cellulitis allergic reaction just name a few. Patient's exam is consistent with cellulitis. I doubt the patient would benefit from antibiotics. Patient was given a prescription for clindamycin and Bactrim. Patient is advised to follow up with primary doctor in 2-3 days and return the emergency room for any worsening symptoms and as needed. Last Vital Signs Date Time Temp Pulse Resp B/P (MAP) Pulse Ox O2 Delivery O2 Flow Rate FiO2 03/11/20 11:53 98.7 87 19 102/70 99 Room Air Status: improved Disposition: HOME, SELF-CARE Condition: Stable Scripts Ibuprofen* (MOTRIN*) 600 Mg Tablet 600 MG ORAL Q6H PRN for FOR PAIN, #20 TAB 0 Refills Prov: Maurice Quezada MD 03/11/20 Trimethoprim/Sulfamethoxazole 160/800* (BACTRIM DS TABLET*) 1 Each Tablet 1 TAB ORAL Q12H, #14 TAB 0 Refills Prov: Maurice Quezada MD 03/11/20 Clindamycin Hcl (CLEOCIN HCL) 300 Mg Capsule 300 MG PO THREE TIMES A DAY for 7 Days, CAP Prov: Maurice Quezada MD 03/11/20 Referrals: NOT CHOSEN [facility]/,REFERRING (PCP) Patient Instructions: Cellulitis, [id number] Maurice Quezada MD Mar 11, 2020 13:37
== END 2020-03-11 11:53 | disposition home or self-care (01) ==
LOC: EMR 11:50
DX: L03.211 Cellulitis of face (principal); F17.200 Nicotine dependence, unspecified, uncomplicated
CPT/HCPCS: 10160; Z7502; 99283

== ENCOUNTER 2020-09-14 14:23 | Emergency (ER) | payer MEDICAID, OTHER ==
[~2020-09-14] VITALS: Ht 157.5 cm; Wt 81.6 kg
[~2020-09-14 14:23] MED LIST changes: +BACTRIM DS TAB1 EAC1 ORAL; +CLEOCIN HCL300 MG PO; +IBUPROFEN600 M1 ORAL
[2020-09-14 14:30] VITALS: BP 117/81
--- NOTE | 2020-09-14 14:37 | NUR ---
ED Nurse Note: patient from home and walked in due to pain when inhaling, coughing and sneezing x 3 days. Denies SOB. Pt states that it began after she was doing an exercise. Pt is AAO x4, ambulatory with non labored breathing.
--- NOTE | 2020-09-14 15:08 | Emergency Room Report ---
History of Present Illness General Chief Complaint: Pain Source: Patient Present Illness HPI 29 YO female with no significant PmHx presents to the ED c/o 03/30 in severity squeezing and fullness sensation in the right lower ribcage area anterolaterally x 3 days. She denies cough. She denies fevers or chills. She reports symptoms primarily when inhaling. She denies hemoptysis. She reports smoking. Hx. She reports having the copper IUD. She denies recent travel or immobilization. She denies hx of blood dyscrasia. She denies hx of ETOH dependence or excessive ETOH use. She denies nausea or vomiting. Pt. reports constant pressure worse with inhalation. Allergies: Coded Allergies: No Known Allergies (Unverified , 08/08/12) COVID-19 Screening Contact w/high risk pt: No Experienced COVID-19 symptoms?: No COVID-19 Testing performed CD TECHNICIAN: Yes COVID-19 Screening: Negative COVID-19 COVID-19 Testing Source: Patient History Past Medical History: see triage record Past Surgical History: none Pertinent Family History: none Last Menstrual Period: 08/14/20 Now: No Reviewed Nursing Documentation: PMH: Agreed; PSxH: Agreed Nursing Documentation-PMH Hx Cardiac Problems: No Hx Hypertension: No Hx Pacemaker: No Hx Asthma: No Hx COPD: No Hx Diabetes: No Hx Cancer: No Hx Gastrointestinal Problems: No Hx Dialysis: No Hx Neurological Problems: No Hx Cerebrovascular Accident: No Hx Seizures: No Review of Systems All Other Systems: negative except mentioned in HPI Physical Exam Vital Signs Date Time Temp Pulse Resp B/P (MAP) Pulse Ox O2 Delivery O2 Flow Rate FiO2 09/14/20 14:30 99.1 88 16 117/81 (93) 94 Room Air Sp02 EP Interpretation: reviewed, normal General Appearance: no apparent distress, alert, GCS 15, non-toxic Head: normocephalic, atraumatic Eyes: bilateral eye normal inspection, bilateral eye PERRL ENT: hearing grossly normal, normal voice Neck: full range of motion Respiratory: lungs clear, normal breath sounds, no respiratory distress, no accessory muscle use, no wheezing, speaking full sentences Cardiovascular #1: regular rate, rhythm, no edema, no murmur, normal capillary refill Gastrointestinal: normal bowel sounds, non tender - No specific localized abdominal tenderness, soft, non-distended, no guarding Genitourinary: normal inspection, no CVA tenderness Musculoskeletal: normal range of motion, gait/station normal, non-tender Neurologic: alert, motor strength/tone normal, oriented x3, sensory intact, responsive, speech normal Psychiatric: judgement/insight normal Skin: no rash, normal color Medical Decision Making PA Attestation Dr. Najera Is my supervising Physician whom patient management has been discussed with. Diagnostic Impression: Primary Impression: Right-sided abdominal pain of unknown cause Additional Impressions: Rib pain on right side Left against medical advice ER Course Pt. presents to the ED c/o shortness of breath and chest pain x2 days, exace rbated when she has physical exertion Ddx considered but are not limited to LA, PE, atelectasis, CHF, asthma,PNA,, costochondritis, chest wall pain,Gallstones just to name a few No acute pulmonary or cardiac causes at this time patient is in no acute di stress her oxygen saturation is within normal limits, patient is not in any respiratory distress at this time Vital signs: are WNL, pt. is afebrile H&PE are most consistent with possible chest wall pain, pt. NAD. will check lipase. ORDERS: -EKG: NSR 71 beats per minute, no acute ST changes DISPOSITION: Pt. requested to leave, she reports her care was taking to long. She does not want to have labs performed. PT> LEFT AMA without signing. EKG Diagnostic Results Troponin ordered: No EKG Time: 15:54 EP Interpretation: 71 Rate: normal Rhythm: NSR ST Segments: no acute changes ASA given to the pt in ED: No PA Scribe Text This Interpretation was scribed by SMITA Matthew. Chest X-Ray Diagnostic Results Chest X-Ray Diagnostic Results : Chest X-Ray Ordered: Yes # of Views/Limited/Complete: 1 View Indication: Chest Pain EP Interpretation: Yes SMITA Xray: Interpretation reviewed, by supervising MD, and agrees with findings. Interpretation: no consolidation, no effusion, no pneumothorax Impression: No acute disease Electronically Signed by: Justine Matthew PA-C Last Vital Signs Date Time Temp Pulse Resp B/P (MAP) Pulse Ox O2 Delivery O2 Flow Rate FiO2 09/14/20 14:30 99.1 88 16 117/81 94 Room Air Disposition: AGAINST MEDICAL ADVICE - PT. refused to sign form. Condition: Unknown Referrals: [facility]ERR[facility],REFERRING (PCP) Additional Instructions: Dr. Najera Is my supervising Physician whom patient management has been discussed with. Justine Matthew Sep 14, 2020 15:08
--- NOTE | 2020-09-14 16:05 | NUR ---
Nurse Note: EKG done. Pt refusing blood draw.
[2020-09-14 16:15] VITALS: BP 117/81
--- NOTE | 2020-09-14 16:15 | NUR ---
Nurse Note: Pt left against medical advice. Pt stated "I do not want to be here anymore. I am done and I am not going to sign stupid papers and get billed". Provider made aware; pt still left after being informed. Pt is AAO x4, ambulatory and left with all personal belongings.
--- NOTE | 2020-09-14 16:29 | Diagnostic Imaging Report ---
Indication: Chest pain Technique: One view of the chest Comparison: none Findings: Lungs and pleural spaces are clear. Heart size is normal. Impression: No acute process
== END 2020-09-14 16:15 | disposition left against medical advice (07) ==
LOC: EMR 14:36
DX: R07.81 Pleurodynia (principal); R10.9 Unspecified abdominal pain; Z97.5 Presence of (intrauterine) contraceptive device; F17.200 Nicotine dependence, unspecified, uncomplicated; R07.9 Chest pain, unspecified
CPT/HCPCS: 71045; 93005; Z7502; 99283

== ENCOUNTER 2020-09-19 00:24 | Emergency (ER) | payer OTHER ==
[~2020-09-19] VITALS: Ht 157.5 cm; Wt 81.6 kg
--- NOTE | 2020-09-19 00:50 | Emergency Room Report ---
History of Present Illness General Chief Complaint: Abdominal Pain Source: Patient Present Illness HPI This is a 29-year-old female with no past medical history. She presents with chief complaint of abdominal pain. This been ongoing for 5 days. She was here 4 days ago with right rib right upper quadrant tenderness. She had an EKG and chest x-ray done and left AMA. She said symptoms get worse. Now she has fullness and tightness in her abdomen. Pain is diffuse but more on the left lower quadrant. Does have urinary frequency. Also with subjective chills and diarrhea. Pain is 7 out of 10. Stretching and coughing made it worse. Bending made it better. 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 COVID-19 Screening: Negative COVID-19 Patient History Past Medical History: see triage record, old chart reviewed Past Surgical History: none Pertinent Family History: none Social History: Denies: smoking Now: No Immunizations: other Reviewed Nursing Documentation: PMH: Agreed; PSxH: Agreed Nursing Documentation-PMH Hx Cardiac Problems: No Hx Hypertension: No Hx Pacemaker: No Hx Asthma: No Hx COPD: No Hx Diabetes: No Hx Cancer: No Hx Gastrointestinal Problems: No Hx Dialysis: No Hx Neurological Problems: No Hx Cerebrovascular Accident: No Hx Seizures: No Review of Systems Constitutional: Reports: chills Eye: Denies: eye pain, blurred vision ENT: Denies: ear pain, nose congestion, throat swelling Respiratory: Denies: cough, shortness of breath Cardiovascular: Denies: chest pain, palpitations Gastrointestinal: Reports: abdominal pain, diarrhea; Denies: nausea, vomiting Musculoskeletal: Denies: back pain, joint pain Skin: Denies: rash Neurological: Denies: headache, numbness Endocrine: Denies: increased thirst, increased urine Hematologic/Lymphatic: Denies: easy bruising All Other Systems: negative except mentioned in HPI Physical Exam Vital Signs Date Time Temp Pulse Resp B/P (MAP) Pulse Ox O2 Delivery O2 Flow Rate FiO2 09/19/20 00:28 99.0 97 20 119/76 (90) 99 Room Air Vitals unremarkable Sp02 EP Interpretation: reviewed, normal General Appearance: well appearing, no apparent distress, alert Head: normocephalic, atraumatic Eyes: bilateral eye PERRL, bilateral eye EOMI ENT: hearing grossly normal, normal pharynx Neck: full range of motion, supple, no meningismus Respiratory: chest non-tender, lungs clear, normal breath sounds Cardiovascular #1: regular rate, rhythm, no murmur Gastrointestinal: normal bowel sounds, no mass, no organomegaly, no bruit, non- distended, tenderness - Left lower quadrant Musculoskeletal: back normal, normal range of motion, gait/station normal Psychiatric: mood/affect normal Medical Decision Making Diagnostic Impression: Primary Impression: PID (acute pelvic inflammatory disease) Additional Impression: UTI (urinary tract infection) Qualified Codes: N30.00 - Acute cystitis without hematuria ER Course Patient presents with pelvic and abdominal pain. Also has UTI type symptoms. CT scan showed none [place] infiltration abdominal gluteal subcutaneous fat. She does admit to having unprotected sex and having a discharge. Will treat for PID. This is most likely the cause of her symptoms. Initially with right upper quadrant pain could be Mukesh-Sheng Parmjit. CT/MRI/US Diagnostic Results CT/MRI/US Diagnostic Results : Imaging Test Ordered: CT abdomen pelvis Impression Read by radiologist. Nonspecific infiltration abdominal and gluteal subcutaneous fat. These are findings consistent with diffuse acute enteritis likely infectious or inflammatory. Significant inflammatory changes in the pelvis including cervical enlargement anterior cervical stranding. Last Vital Signs Date Time Temp Pulse Resp B/P (MAP) Pulse Ox O2 Delivery O2 Flow Rate FiO2 09/19/20 00:28 99.0 97 20 119/76 (90) 99 Room Air Status: improved Disposition: HOME, SELF-CARE Condition: Stable Scripts Ibuprofen* (MOTRIN*) 600 Mg Tablet 600 MG ORAL Q6H PRN for For Pain, #30 TAB 0 Refills Prov: Carlos Alberto Aceves MD 09/19/20 Metronidazole* (FLAGYL*) 500 Mg Tablet 500 MG ORAL BID, #14 TAB Prov: Carlos Alberto Aceves MD 09/19/20 Doxycycline Monohydrate* (DOXYCYCLINE MONOHYDRATE*) 100 Mg Capsule 100 MG ORAL Q12H, #28 CAP 0 Refills Prov: Carlos Alberto Aceves MD 09/19/20 Referrals: [facility]ERR[facility] (PCP) Additional Instructions: Follow-up with your doctor in 7 days. Have your partners treated also. Recommend outpatient testing for HIV, hepatitis, syphilis and other STDs. Return if symptoms worsen. Carlos Alberto Aceves MD Sep 19, 2020 00:50
[2020-09-19] MEDS ORDERED: Ketorolac 30mg Inj IV ONE (01:00)
--- NOTE | 2020-09-19 01:08 | NUR ---
ED Nurse Note: pt presents with c/o generalized abdominal pain. states its worse upon inhale. pt states she came to the ED 4 days ago for the same concern but pain was only on her right side of her abdomen. UA and blood sent to lab. pt resting comfortably on stretcher, vs wnl, bowel sounds present in all quadrants and pt states pain 10/10. will medicate and continue to monitor while waiting for CT transport.
[2020-09-19 01:10] VITALS: BP 114/67
[2020-09-19 01:21] LABS: BASOPHILS % (AUTO) 1.1 % (0.0-2.0); EOSINOPHILS % (AUTO) 0.5 % (0.0-3.0); HEMATOCRIT 41.5 % (37.0-47.0); HEMOGLOBIN 14.2 G/DL (12.0-16.0); LYMPHOCYTES % (AUTO) 15.4 % (20.0-45.0); MEAN CORPUSCULAR VOLUME 96 FL (80-99); MONOCYTES % (AUTO) 7.5 % (1.0-10.0); NEUTROPHILS % (AUTO) 75.5 % (45.0-75.0); PLATELET COUNT 334 K/UL (150-450); RED CELL DISTRIBUTION WIDTH 13.2 % (11.6-14.8); WHITE BLOOD COUNT 15.4 K/UL (4.8-10.8)
[2020-09-19 01:22] LABS: ANION GAP 7 mmol/L (5-15); BLOOD UREA NITROGEN 13 mg/dL (7-18); CALCIUM 9.2 MG/DL (8.5-10.1); CARBON DIOXIDE 28 MMOL/L (21-32); CHLORIDE 102 MMOL/L (98-107); POTASSIUM 3.4 MMOL/L (3.5-5.1); SODIUM 137 MMOL/L (136-145)
[2020-09-19 01:26] LABS: ALANINE AMINOTRANSFERASE 46 U/L (12-78); ALBUMIN/GLOBULIN RATIO 0.6 (1.0-2.7); ALKALINE PHOSPHATASE 122 U/L (46-116); APPEARANCE,URINE CLOUDY; ASPARTATE AMINO TRANSFERASE 58 U/L (15-37); BILIRUBIN, URINE NEGATIVE (NEGATIVE); BILIRUBIN,TOTAL 0.3 MG/DL (0.2-1.0); COLOR,URINE PALE YELLOW; GLUCOSE, URINE (UA) NEGATIVE (NEGATIVE); KETONES,URINE 1+ (NEGATIVE); LEUKOCYTE ESTERASE ,URINE 3+ (NEGATIVE); NITRITE,URINE NEGATIVE (NEGATIVE); PH,URINE 7 (4.5-8.0); PROTEIN,URINE 1+ (NEGATIVE); UROBILINOGEN,URINE 4 MG/DL (0.0-1.0)
--- NOTE | 2020-09-19 02:09 | Diagnostic Imaging Report ---
EXAM: CT Abdomen and Pelvis Without Intravenous Contrast CLINICAL HISTORY: ABD PAIN TECHNIQUE: Axial computed tomography images of the abdomen and pelvis without intravenous contrast. CTDI is 8.20 mGy and DLP is 421.90 mGy-cm. One or more of the following dose reduction techniques were used: automated exposure control, adjustment of the mA and/or kV according to patient size, use of iterative reconstruction technique. COMPARISON: No relevant prior studies available. FINDINGS: Lung bases: Unremarkable. No mass. No consolidation. ABDOMEN: Liver: Unremarkable. Gallbladder and bile ducts: Unremarkable. No calcified stones. No ductal dilation. Pancreas: Unremarkable. No ductal dilation. Spleen: Unremarkable. No splenomegaly. Adrenals: Unremarkable. No mass. 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 Negative for obstructive uropathy. Stomach and bowel: Negative for lower GI tract obstruction or pneumatosis. Nonspecific slightly irregular small bowel wall thickening with mild adjacent inflammatory changes most consistent with enteritis. PELVIS: Appendix: The appendix was not visualized. Bladder: Bladder wall thickening with reticulation likely cystitis. No stones. Reproductive: IUD present in the uterus. Diffuse stranding/inflammatory changes in the pelvis. Nonspecific enlargement of the cervix with paracervical stranding. ABDOMEN and PELVIS: Intraperitoneal space: Unremarkable. No free air. No significant fluid collection. Bones/joints: No acute fracture. No dislocation. Soft tissues: Interval development of irregular nodular infiltration of the subcutaneous fat of the abdomen and pelvis including nodularity in the subcutaneous fat bilateral gluteal regions. Vasculature: Unremarkable. No abdominal aortic aneurysm. Lymph nodes: Unremarkable. No enlarged lymph nodes. IMPRESSION: Nonspecific infiltration abdominal and gluteal subcutaneous fat. There are findings consistent with diffuse acute enteritis likely infectious or inflammatory. Significant inflammatory changes in the pelvis including cervical enlargement and paracervical stranding. Bladder wall thickening with reticulation consistent with cystitis. PID/cervicitis cannot be excluded on this study.
[2020-09-19] MEDS ORDERED: IBUPROFEN600 M1 ORAL (02:41)
[2020-09-19] MEDS ORDERED: METRONIDAZOLE500 MG ORAL (02:41)
[2020-09-19] MEDS ORDERED: DOXYCYCLINE MO100 MG ORAL (02:41)
[2020-09-19] MEDS ORDERED: cefTRIAXone 1 GM in NS 55 ML IVPB ONE (02:45)
[2020-09-19] MEDS ORDERED: Azithromycin 250mg tab ORAL ONE (02:45)
[2020-09-19 03:05] VITALS: BP 119/72
--- NOTE | 2020-09-19 03:05 | NUR ---
ER DISCHARGE NOTE: Patient is cleared to be discharged per ERMD, pt is aox4, on room air, with stable vital signs. pt was given dc and prescription instructions, pt was able to verbalize understanding, pt id band and iv site removed without complications. pt is able to ambulate with steady gait. pt took all belongings.
== END 2020-09-19 03:05 | disposition home or self-care (01) ==
LOC: EMR 00:47
DX: N73.9 Female pelvic inflammatory disease, unspecified (principal); N30.00 Acute cystitis without hematuria
CPT/HCPCS: 36415; 74176; 80053; 81003; 81025; 83690; 85025; 87086; 96365; 96375; J0696; J1885; Q0144; Z7502; 99284